=== PATIENT | female | born 1965 | race Caucasian/White ===

== ENCOUNTER 2017-08-27 18:57 | Emergency (ER) | payer OTHER ==
[~2017-08-27] VITALS: Ht 160 cm; Wt 77.0 kg
[2017-08-27 19:05] VITALS: Ht 160 cm; Wt 77.0 kg
[2017-08-27] MEDS ORDERED: SODIUM CHLORIDE 0.9% 1L BAG IV* STA (20:18)
[2017-08-27] MEDS ORDERED: KETOROLAC 30 MG INJ IV STA (20:18)
--- NOTE | 2017-08-27 21:15 | RADRPT ---
PROCEDURE: Portable chest x-ray. CLINICAL INDICATION: 52-year of age, female. Possible sepsis. TECHNIQUE: Portable AP view of the chest. COMPARISON: None available. FINDINGS: Medical devices: None. Cardiomediastinal contours are normal. Lungs are clear. Negative for pleural effusion or pneumothorax. No acute bony abnormality. Additional comment: None. IMPRESSION: Negative for evidence of an acute chest process. Negative for focal lung consolidation. RPTAT: [facility] Physician Derrek Date Time Electronically viewed and signed by Physician Derrek on 08/27/2017 21:14 CS/
[2017-08-27 21:21] LABS: BASOPHIL # 0.1 10^3/ul (0.0-0.1); BASOPHILS % 0.9 % (0.0-2.0); EOSINOPHILS # 0.1 10^3/ul (0.0-0.5); EOSINOPHILS % 0.7 % (0.0-7.0); HEMATOCRIT 41.8 % (37.0-47.0); HEMOGLOBIN 14.3 g/dl (12.0-16.0); LYMPHOCYTES # 2.1 10^3/ul (0.8-2.9); LYMPHOCYTES % 17.6 % (15.0-51.0); MEAN CORPUSCULAR HEMOGLOBIN 29.7 pg (29.0-33.0); MEAN CORPUSCULAR HGB CONC 34.2 g/dl (32.0-37.0); MEAN CORPUSCULAR VOLUME 86.9 fl (82.0-101.0); MEAN PLATELET VOLUME 9.4 fl (7.4-10.4); MONOCYTE # 0.9 10^3/ul (0.3-0.9); MONOCYTES % 7.2 % (0.0-11.0); NEUTROPHIL # 8.9 10^3/ul (1.6-7.5); NEUTROPHILS % 72.9 % (39.0-77.0); PLATELET COUNT 326 10^3/UL (140-415); RED BLOOD COUNT 4.81 10^6/ul (4.20-5.40); WHITE BLOOD COUNT 12.2 10^3/ul (4.8-10.8)
[2017-08-27 21:31] LABS: ADD UMIC YES; UR ASCORBIC ACID NEGATIVE (NEGATIVE); UR BACTERIA FEW /HPF (NONE SEEN); UR BILIRUBIN (Dip) NEGATIVE (NEGATIVE); UR BLOOD (Dip) NEGATIVE (NEGATIVE); UR CLARITY CLEAR (CLEAR); UR COLOR YELLOW (YELLOW); UR GLUCOSE (Dip) NEGATIVE (NEGATIVE); UR KETONES (Dip) NEGATIVE (NEGATIVE); UR LEUKOCYTE ESTERASE (Dip) TRACE Leu/ul (NEGATIVE); UR MUCUS FEW /HPF (NONE SEEN); UR NITRITE (Dip) NEGATIVE (NEGATIVE); UR RBC 7 /HPF (0-5); UR SPECIFIC GRAVITY (Dip) 1.016 (1.003-1.030); UR SQUAMOUS EPITHELIAL CELL FEW /HPF (FEW); UR TOTAL PROTEIN (Dip) 1+ mg/dl (NEGATIVE); UR UROBILINOGEN (Dip) NEGATIVE (NEGATIVE)
[2017-08-27 21:37] LABS: PROTIME 13.2 Sec (12.2-14.2)
[2017-08-27 21:39] LABS: ALANINE AMINOTRANSFERASE 135 IU/L (13-69); ALBUMIN 4.4 g/dl (3.3-4.9); ALBUMIN/GLOBULIN RATIO 1.33; ALKALINE PHOSPHATASE 99 IU/L (42-121); ANION GAP 17 (8-16); ASPARTATE AMINO TRANSFERASE 74 IU/L (15-46); BILIRUBIN,INDIRECT 0.3 mg/dl (0-1.1); BILIRUBIN,TOTAL 0.3 mg/dl (0.2-1.3); BLOOD UREA NITROGEN 8 mg/dl (7-20); CALCIUM 10.4 mg/dl (8.4-10.2); CARBON DIOXIDE 23 mmol/L (21-31); CHLORIDE 106 mmol/L (97-110); CREATININE 0.63 mg/dl (0.44-1.00); GLUCOSE 111 mg/dl (70-220); POTASSIUM 3.9 mmol/L (3.5-5.1); SODIUM 142 mmol/L (135-144); TOTAL PROTEIN 7.7 g/dl (6.1-8.1)
[2017-08-27 21:42] LABS: PARTIAL THROMBOPLASTIN TIME 28.9 Sec (25.0-35.0)
[2017-08-27 21:52] LABS: TROPONIN-I < 0.012 ng/ml (0.00-0.12)
--- NOTE | 2017-08-27 22:04 | ERD ---
ER Documentation Chief Complaint Chief Complaint Bilateral arm pain and ST since Saturday, Seen by PCP yesterday, has UTI HPI 52-year-old female with a history of hypothyroidism on levothyroxine presenting to the ER complaining of generalized body aches. She mostly has pain in her bilateral shoulders, upper chest, bilateral neck area. The pain is worse with movement and touching. She denies any associated symptoms or recent injury. Her symptoms have been present for about 3 days. She was seen by her primary care doctor who ordered multiple x-rays of her neck, shoulder, and spine, but she was not told that there was any abnormalities. She was given a prescription for muscle relaxers, Tylenol with codeine, and gabapentin. She was told it was probably nerve pain. She denies any URI symptoms, nausea, vomiting, diarrhea, shortness of breath, cough, headache or vision disturbance. No sick contacts. No recent travel. ROS All systems reviewed and are negative except as per history of present illness. Medications Home Meds Active Scripts Ibuprofen* (Motrin*) 600 Mg Tab, 600 MG PO Q6H Y for PAIN AND OR ELEVATED TEMP, #30 TAB Prov:LILIANE BYNUM MD 08/27/17 Allergies Allergies: Coded Allergies: No Known Allergy (Unverified , 08/27/17) PMhx/Soc Medical and Surgical Hx: pt denies Medical Hx, pt denies Surgical Hx Hx Alcohol Use: No Hx Substance Use: No Hx Tobacco Use: No Smoking Status: Never smoker FmHx Family History: No diabetes Physical Exam Vitals Vital Signs Date Time Temp Pulse Resp B/P Pulse Ox O2 Delivery O2 Flow Rate FiO2 08/27/17 23:04 98.7 82 16 113/82 97 Room Air 08/27/17 19:05 101.2 111 16 149/90 99 Physical Exam Const: Well-developed, well-nourished, slightly sickly appearing but nontoxic, no apparent distress Head: Atraumatic Eyes: Bilateral conjunctival injection, mild, no discharge. PERRLA, EOMI ENT: Oropharynx clear without erythema or exudate. No posterior oropharyngeal swelling. Dry mucous membranes Neck: Full range of motion..~ No meningismus. No C-spine tenderness. No cervical lymphadenopathy or masses Chest wall: Diffuse tenderness to palpation of the anterior upper chest wall and right lateral neck, no crepitus no overlying erythema. Resp: Clear to auscultation bilaterally Cardio: Tachycardic with regular rhythm, no murmurs. 2+ distal pulses Abd: Soft, non tender, non distended. Normal bowel sounds Skin: No petechiae or rashes Back: No midline or flank tenderness Ext: No cyanosis, or edema. No calf tenderness. No joint swelling or overlying erythema.. Limited range of motion of bilateral shoulders secondary to pain. There is mild tenderness to palpation of the right shoulder joint. Neur: Awake and alert Psych: Normal Mood and Affect Result Diagram: 08/27/17203908/27/172039 Results 24 hrs Laboratory Tests Test 08/27/17 20:40 White Blood Count 12.210^3/ul Red Blood Count 4.8110^6/ul Hemoglobin 14.3g/dl Hematocrit 41.8% Mean Corpuscular Volume 86.9fl Mean Corpuscular Hemoglobin 29.7pg Mean Corpuscular Hemoglobin Concent 34.2g/dl Red Cell Distribution Width 12.0% Platelet Count 35548^3/UL Mean Platelet Volume 9.4fl Neutrophils % 72.9% Lymphocytes % 17.6% Monocytes % 7.2% Eosinophils % 0.7% Basophils % 0.9% Nucleated Red Blood Cells % 0.0/100WBC Neutrophils # 8.910^3/ul Lymphocytes # 2.110^3/ul Monocytes # 0.910^3/ul Eosinophils # 0.110^3/ul Basophils # 0.110^3/ul Nucleated Red Blood Cells # 0.010^3/ul Prothrombin Time 13.2Sec Prothrombin Time Ratio 1.0 INR International Normalized Ratio 1.00 Activated Partial Thromboplast Time 28.9Sec Urine Color YELLOW Urine Clarity CLEAR Urine pH 9.0 Urine Specific [place] 1.016 Urine Ketones NEGATIVEmg/dL Urine Nitrite NEGATIVEmg/dL Urine Bilirubin NEGATIVEmg/dL Urine Urobilinogen NEGATIVEmg/dL Urine Leukocyte Esterase TRACELeu/ul Urine Microscopic RBC 7/HPF Urine Microscopic WBC 5/HPF Urine Squamous Epithelial Cells FEW/HPF Urine Bacteria FEW/HPF Urine Mucus FEW/HPF Urine Hemoglobin NEGATIVEmg/dL Urine Glucose NEGATIVEmg/dL Urine Total Protein 1+mg/dl Sodium Level 142mmol/L Potassium Level 3.9mmol/L Chloride Level 106mmol/L Carbon Dioxide Level 23mmol/L Anion Gap 17 Blood Urea Nitrogen 8mg/dl Creatinine 0.63mg/dl Glucose Level 111mg/dl Lactic Acid Level 1.9mmol/L Calcium Level 10.4mg/dl Total Bilirubin 0.3mg/dl Direct Bilirubin 0.00mg/dl Indirect Bilirubin 0.3mg/dl Aspartate Amino Transf (AST/SGOT) 74IU/L Alanine Aminotransferase (ALT/SGPT) 135IU/L Alkaline Phosphatase 99IU/L Troponin I < 0.012ng/ml Total Protein 7.7g/dl Albumin 4.4g/dl Globulin 3.30g/dl Albumin/Globulin Ratio 1.33 Current Medications Medications (Trade) Dose Ordered Sig/Edith Route PRN Reason Start Time Stop Time Status Last Admin Dose Admin Sodium Chloride (NS) 2,390 ml BOLUS OVER 2 HOURS STAT IV* 08/27/17 20:18 08/27/17 20:21 DC 08/27/17 21:14 Ketorolac Tromethamine (Toradol) 30 mg ONCE STAT IV 08/27/17 20:18 08/27/17 20:21 DC 08/27/17 21:13 Procedures/[facility] Labs CBC: leukocytosis, no left shift CMP: No evidence of electrolyte abnormality, renal failure, hypoglycemia, liver failure, or biliary obstruction. Mold transaminitis Troponin within normal limits UA: no evidence of infection or rhabdomyolysis Imaging Chest x-ray shows no acute abnormalities EKG: Rate/Rhythm: [Normal Sinus Rhythm] QRS, ST, T-waves: [No changes consistent w/ acute ischemia] Impression: [No evidence of ischemia or arrhythmia] [facility] Patient is presenting with generalized body aches and vitals notable for fever and tachycardia. However there is no obvious source of infection. I have a low suspicion for pneumonia, UTI, meningitis, encephalitis, spinal abscess. Her workup revealed only mild leukocytosis but no source of infection. At this time I suspect the patient has a flulike illness. She was given IV fluids and Toradol IV. Upon reevaluation, the patient states she feels much better. She continues to have some right shoulder pain, but generally feels much better. She is able to tolerate fluids by mouth. Her vital signs have improved and she is now afebrile. At this time I believe the patient is stable for discharge. I recommended plenty of fluids and rest. If her symptoms are to worsen or she develops any new worrisome symptoms, she was encouraged to return to the ER immediately. Otherwise I recommended follow-up with her primary care doctor in the next 1-2 days. Departure Diagnosis: Primary Impression: Myalgia Additional Impression: Acute febrile illness Condition: Stable LILIANE BYNUM MD Aug 27, 2017 22:04
[2017-08-27] MEDS ORDERED: IBUP-1542 PO (22:47)
[2017-08-27 23:04] VITALS: BP 113/82; PULSE 82; RESP 16; TEMP 98.7
== END 2017-08-27 23:04 | disposition home or self-care (01) ==
LOC: FTE 18:57
DX: M79.1 Myalgia (principal); R50.9 Fever, unspecified; R07.9 Chest pain, unspecified
CPT/HCPCS: 36415; 71010; 80053; 81001; 83605; 84484; 85025; 85610; 85730; 87040; 87086; 93005; 96374; 99285; J1885; J7030